=== PATIENT | female | born 1940 | race Caucasian/White ===

== ENCOUNTER 2017-10-17 16:10 | Inpatient (IN) | payer MEDICARE, BC ==
[2017-10-17] MEDS ORDERED: DYAZIDE 25 MG-31 CAP PO (19:15)
[2017-10-17] MEDS ORDERED: ISOPTIN SR180 M1 PO (19:16)
[2017-10-17] MEDS ORDERED: CELEXA40 MG PO (19:17)
[2017-10-17] MEDS ORDERED: TENORMIN 5050 MG/TAB PO ×2 (19:17→19:18)
[2017-10-17] MEDS ORDERED: MOBIC15 MG PO (19:19)
[2017-10-17] MEDS ORDERED: PRILOSEC 20MG20 MG PO (19:19)
[2017-10-17] MEDS ORDERED: PRESERVISION1 SGL PO (19:20)
[2017-10-17 20:00] VITALS: BP 112/71; PULSE 88; TEMP 98.2
[2017-10-17 20:36] LABS: BASO # 0.1 (0.0-0.2); BASO % 0.5 % (0.0-2.0); EOS # 0.1 (0.0-0.7); EOS % 0.9 % (0-4.0); GRAN # 8.5 (1.4-6.5); GRAN % 77.2 % (42.2-75.2); HEMATOCRIT 40.1 % (37.0-47.0); HEMOGLOBIN 13.4 g/dl (12.5-16.0); LYMPH # 1.4 (1.2-3.4); LYMPH % 12.3 % (20.0-51.0); MEAN CELL VOLUME 93 fl (80.0-100.0); MEAN CORPUSCULAR HEMOGLOBIN 31 pg (27.0-31.0); MEAN CORPUSCULAR HGB CONC 33 g/dl (33.0-37.0); MEAN PLATELET VOLUME 9.2 fl (7.4-10.4); MONO % 8.7 % (1.7-9.3); PLATELET COUNT 248 K/mm3 (130-400)
[2017-10-17 20:40] LABS: PROTHROMBIN TIME 10.9 SECONDS (9.7-12.8)
[2017-10-17 20:44] LABS: ALBUMIN 4.3 gm/dL (3.5-5.0); BILIRUBIN,TOTAL 0.7 mg/dL (0.0-1.0); CREATININE, serum 0.86 mg/dL (0.52-1.25); POTASSIUM 4.3 mmol/L (3.4-5.0); TOTAL PROTEIN 7.3 gm/dL (6.4-8.2)
[2017-10-17 20:51] LABS: PRE ALBUMIN 29.8 mg/dL (17.6-36.0)
[2017-10-17 21:41] LABS: PH 6 (5-8); SQUAMOUS EPITHELIAL 0-2 /hpf; URINE APPEARANCE Clear; URINE BACTERIA None Seen /hpf; URINE BILIRUBIN Negative (NEGATIVE); URINE BLOOD Negative (NEGATIVE); URINE COLOR Yellow; URINE GLUCOSE Negative (NEGATIVE); URINE KETONE Negative (NEGATIVE); URINE LEUKOCYTE ESTERASE 2+ (NEGATIVE); URINE NITRATE Negative (NEGATIVE); URINE PROTEIN(semi-quant) Negative (NEGATIVE); URINE UROBILINOGEN Negative (NEGATIVE)
[2017-10-17 21:44] LABS: COLLECTION METHOD CLEAN CATCH
[2017-10-18] VITALS (10 sets, daily range): BP systolic 93–135; BP diastolic 51–84; PULSE 65–82; TEMP 98.1–98.4
[2017-10-19] VITALS (7 sets, daily range): BP systolic 133–176; BP diastolic 54–83; PULSE 69–90; TEMP 97.9–99.4
[2017-10-19 06:55] LABS: BASO % 0.2 % (0.0-2.0); GRAN # 9.2 (1.4-6.5); GRAN % 86.2 % (42.2-75.2); LYMPH # 0.6 (1.2-3.4); LYMPH % 5.8 % (20.0-51.0); MEAN CORPUSCULAR HGB CONC 32 g/dl (33.0-37.0); MONO # 0.8 (0.1-0.6); MONO % 7.5 % (1.7-9.3); PLATELET COUNT 236 K/mm3 (130-400); RED BLOOD COUNT 3.52 M/mm3 (4.10-5.30); REDCELL DISTRIBUTION WIDTH-CV 13.1 % (11.5-14.5)
[2017-10-19 06:58] LABS: HEMATOCRIT 34.6 % (37.0-47.0); HEMOGLOBIN 11.2 g/dl (12.5-16.0); MEAN CELL VOLUME 98 fl (80.0-100.0); MEAN CORPUSCULAR HEMOGLOBIN 32 pg (27.0-31.0)
[2017-10-19 07:08] LABS: CALCIUM 8.4 mg/dL (8.4-10.2); CREATININE, serum 0.99 mg/dL (0.52-1.25)
[2017-10-20 04:28] VITALS: BP 169/65; PULSE 79; TEMP 98.5
[2017-10-20 06:38] LABS: BASO # 0.1 (0.0-0.2); BASO % 0.6 % (0.0-2.0); EOS # 0.1 (0.0-0.7); EOS % 1.5 % (0-4.0); GRAN # 6.4 (1.4-6.5); GRAN % 67.2 % (42.2-75.2); HEMATOCRIT 34.5 % (37.0-47.0); LYMPH % 20.7 % (20.0-51.0); MEAN CELL VOLUME 98 fl (80.0-100.0); MEAN CORPUSCULAR HEMOGLOBIN 31 pg (27.0-31.0); MEAN CORPUSCULAR HGB CONC 32 g/dl (33.0-37.0); MEAN PLATELET VOLUME 10.1 fl (7.4-10.4); MONO # 0.9 (0.1-0.6); MONO % 9.4 % (1.7-9.3); PLATELET COUNT 233 K/mm3 (130-400); RED BLOOD COUNT 3.51 M/mm3 (4.10-5.30); REDCELL DISTRIBUTION WIDTH-CV 13.2 % (11.5-14.5)
[2017-10-20 08:32] VITALS: BP 150/65; PULSE 78; TEMP 97.9
[2017-10-20] MEDS ORDERED: VITAMINC1000TA PO (11:02)
[2017-10-20] MEDS ORDERED: DUO-KAPS1 CAP PO (11:03)
[2017-10-20] MEDS ORDERED: OYSCO 500500 M1 PO (11:03)
[2017-10-20] MEDS ORDERED: ROXICODONE 55 MG/TAB PO ×3 (11:06→14:07)
[2017-10-20] MEDS ORDERED: COLACE 100100 MG/CAP PO (11:08)
[2017-10-20 11:57] VITALS: BP 126/58; PULSE 65; TEMP 98.2
[2017-10-20] MEDS ORDERED: ASPI325T6 PO (12:22)
[2017-10-20 15:29] VITALS: BP 125/58; PULSE 67; TEMP 98.7
== END 2017-10-20 16:25 | disposition home or self-care (01) | DRG 482 ==
LOC: SURG 16:10
PROVIDERS: Nurse Practitioner Family; Orthopaedic Surgery
PROC: 0QS734Z Reposition Left Upper Femur with Internal Fixation Device, Percutaneous Approach (ICD-10-PCS; principal; 2017-10-18 07:30)
DX: M80.052A Age-related osteoporosis with current pathological fracture, left femur, initial encounter for fracture (principal); W19.XXXA Unspecified fall, initial encounter; D72.829 Elevated white blood cell count, unspecified; K21.9 Gastro-esophageal reflux disease without esophagitis; F32.9 Major depressive disorder, single episode, unspecified; R07.89 Other chest pain; I10 Essential (primary) hypertension; Z85.3 Personal history of malignant neoplasm of breast; Z87.891 Personal history of nicotine dependence
CPT/HCPCS: 99223-AI; 99232-AI; A9284; C1713; J0690; J1100; J1170; J1885; J2270; J2405; J2704; J3010; J7120

== ENCOUNTER 2018-03-12 10:44 | Emergency (ER) | payer MEDICARE, BC ==
[~2018-03-12] VITALS: Ht 167.6 cm; Wt 68.2 kg
[~2018-03-12 10:44] MED LIST: ASPI325T6 PO; CELEXA40 MG PO; COLACE 100100 MG/CAP PO; DUO-KAPS1 CAP PO; DYAZIDE 25 MG-31 CAP PO; ISOPTIN SR180 M1 PO; MOBIC15 MG PO; OYSCO 500500 M1 PO; PRESERVISION1 SGL PO; PRILOSEC 20MG20 MG PO; ROXICODONE 55 MG/TAB PO; TENORMIN 5050 MG/TAB PO; VITAMINC1000TA PO
[2018-03-12 10:55] VITALS: TEMP 96.2
[2018-03-12 11:55] LABS: COLLECTION METHOD CLEAN CATCH
[2018-03-12 12:05] LABS: PH 7 (5-8); SQUAMOUS EPITHELIAL 0-2 /hpf; URINE APPEARANCE Clear; URINE BACTERIA None Seen /hpf; URINE BILIRUBIN Negative (NEGATIVE); URINE BLOOD 1+ (NEGATIVE); URINE COLOR Straw; URINE GLUCOSE Negative (NEGATIVE); URINE KETONE Negative (NEGATIVE); URINE LEUKOCYTE ESTERASE 1+ (NEGATIVE); URINE NITRATE Negative (NEGATIVE); URINE PROTEIN(semi-quant) Negative (NEGATIVE); URINE RBC 0-2 /hpf; URINE UROBILINOGEN Negative (NEGATIVE)
[2018-03-12 12:12] LABS: BASO # 0.1 (0.0-0.2); BASO % 0.9 % (0.0-2.0); EOS # 0.2 (0.0-0.7); EOS % 1.8 % (0-4.0); GRAN # 7.3 (1.4-6.5); GRAN % 75.3 % (42.2-75.2); HEMATOCRIT 42.8 % (37.0-47.0); HEMOGLOBIN 14.5 g/dl (12.5-16.0); LYMPH # 1.4 (1.2-3.4); LYMPH % 14.4 % (20.0-51.0); MEAN CELL VOLUME 91 fl (80.0-100.0); MEAN CORPUSCULAR HEMOGLOBIN 31 pg (27.0-31.0); MEAN CORPUSCULAR HGB CONC 34 g/dl (33.0-37.0); MEAN PLATELET VOLUME 9.2 fl (7.4-10.4); MONO # 0.7 (0.1-0.6); MONO % 7.3 % (1.7-9.3); PLATELET COUNT 318 K/mm3 (130-400); RED BLOOD COUNT 4.72 M/mm3 (4.10-5.30); REDCELL DISTRIBUTION WIDTH-CV 12.5 % (11.5-14.5)
[2018-03-12 12:45] LABS: ALBUMIN 4.4 gm/dL (3.5-5.0); BILIRUBIN,TOTAL 0.9 mg/dL (0.0-1.0); CALCIUM 9.5 mg/dL (8.4-10.2); CREATININE, serum 0.98 mg/dL (0.52-1.25); POTASSIUM 4.7 mmol/L (3.4-5.0); TOTAL PROTEIN 7.6 gm/dL (6.4-8.2)
[2018-03-12 13:06] VITALS: BP 154/71; PULSE 80
== END 2018-03-12 13:07 | disposition home or self-care (01) ==
LOC: COL.ER 10:44
PROVIDERS: Emergency Medicine
DX: S06.0X9A Concussion with loss of consciousness of unspecified duration, initial encounter (principal); S80.01XA Contusion of right knee, initial encounter; S00.83XA Contusion of other part of head, initial encounter; S50.311A Abrasion of right elbow, initial encounter; Z23 Encounter for immunization; W01.0XXA Fall on same level from slipping, tripping and stumbling without subsequent striking against object, initial encounter; Y92.129 Unspecified place in nursing home as the place of occurrence of the external cause

== ENCOUNTER 2018-03-25 11:42 | Emergency (ER) | payer MEDICARE, BC ==
[~2018-03-25] VITALS: Ht 167.6 cm; Wt 63.6 kg
[2018-03-25 11:43] VITALS: TEMP 97.6
[2018-03-25] MEDS ORDERED: TEGRETOL 2200 MG/TA1 PO (11:55)
[2018-03-25 12:07] LABS: BASO # 0.1 (0.0-0.2); BASO % 1.3 % (0.0-2.0); EOS # 0.3 (0.0-0.7); EOS % 2.9 % (0-4.0); GRAN # 6.5 (1.4-6.5); GRAN % 66.7 % (42.2-75.2); HEMATOCRIT 41.3 % (37.0-47.0); HEMOGLOBIN 13.5 g/dl (12.5-16.0); INR 0.9 (0.8-3.0); LYMPH # 1.8 (1.2-3.4); LYMPH % 18.7 % (20.0-51.0); MEAN CELL VOLUME 95 fl (80.0-100.0); MEAN CORPUSCULAR HEMOGLOBIN 31 pg (27.0-31.0); MEAN CORPUSCULAR HGB CONC 33 g/dl (33.0-37.0); MEAN PLATELET VOLUME 9.1 fl (7.4-10.4); PLATELET COUNT 307 K/mm3 (130-400); PROTHROMBIN TIME 10.7 SECONDS (9.7-12.8); RED BLOOD COUNT 4.35 M/mm3 (4.10-5.30); REDCELL DISTRIBUTION WIDTH-CV 13.5 % (11.5-14.5)
[2018-03-25 12:10] LABS: PARTIAL THROMBOPLASTIN TIME 36.8 SECONDS (26.0-37.0)
[2018-03-25 12:11] LABS: ALANINE AMINOTRANSFERASE 17 U/L (9-52); ALBUMIN 3.8 gm/dL (3.5-5.0); ALKALINE PHOSPHATASE 56 U/L (50-136); ANION GAP 9 mmol/L (7-16); AST,SGOT 24 U/L (15-37); BILIRUBIN,TOTAL 0.4 mg/dL (0.0-1.0); BLOOD UREA NITROGEN 31 mg/dL (7-17); CALCIUM 8.6 mg/dL (8.4-10.2); CARBON DIOXIDE 21 mmol/L (22-30); CHLORIDE 108 mmol/L (98-107); CREATINE KINASE 54 U/L (30-135); CREATININE, serum 1.49 mg/dL (0.52-1.25); GLUCOSE 91 mg/dL (74-106); MAGNESIUM 1.7 mg/dL (1.6-2.3); POTASSIUM 5.6 mmol/L (3.4-5.0); SODIUM 137 mmol/L (137-145); TOTAL PROTEIN 6.7 gm/dL (6.4-8.2)
[2018-03-25 12:23] LABS: TROPONIN-I < 0.012 ng/mL (0.000-0.034)
[2018-03-25 14:52] VITALS: BP 97/53; PULSE 39
[2018-03-29] MEDS ORDERED: CEPHALEXIN500 M1 PO (16:39)
[2018-03-29] MEDS ORDERED: MELATONIN5 M1 PO (16:40)
[2018-03-29] MEDS ORDERED: TYLENOL 8 HR PO (16:41)
== END 2018-03-25 14:52 | disposition short-term general hospital (02) ==
LOC: COL.ER 11:42
PROVIDERS: Emergency Medicine
DX: R55 Syncope and collapse (principal); R00.1 Bradycardia, unspecified; Z90.710 Acquired absence of both cervix and uterus; Z85.3 Personal history of malignant neoplasm of breast
CPT/HCPCS: J1610; J2060; J2405; J7030

== ENCOUNTER 2019-06-06 15:15 | Observation (INO) | payer MEDICARE, BC ==
[~2019-06-06] VITALS: Ht 167.6 cm; Wt 55.9 kg
[~2019-06-06 15:15] MED LIST changes: +ASPIRIN E.C. 8181 MG PO; +CEPHALEXIN500 M1 PO; +HCTZ12.5TAB PO; +LIPITOR20 MG PO; +LOPRESSOR100 MG PO; +MELATONIN5 M1 PO; +TEGRETOL 2200 MG/TA1 PO; +TYLENOL 8 HR PO; +ZESTRIL 5MG5 MG PO
[2019-06-06 15:59] LABS: HEMATOCRIT 40.1 % (37.0-47.0); HEMOGLOBIN 12.5 g/dl (12.5-16.0); MEAN CELL VOLUME 103 fl (80.0-100.0); MEAN CORPUSCULAR HEMOGLOBIN 32 pg (27.0-31.0); MEAN CORPUSCULAR HGB CONC 31 g/dl (33.0-37.0); MEAN PLATELET VOLUME 9.5 fl (7.4-10.4); PLATELET COUNT 670 K/mm3 (130-400); RED BLOOD COUNT 3.91 M/mm3 (4.10-5.30); REDCELL DISTRIBUTION WIDTH-CV 12.7 % (11.5-14.5)
[2019-06-06 16:04] LABS: INR 1.1 (0.8-3.0); PROTHROMBIN TIME 12.8 SECONDS (9.7-12.8)
[2019-06-06 16:12] LABS: ALBUMIN 3.6 gm/dL (3.5-5.0); BILIRUBIN,TOTAL 0.4 mg/dL (0.0-1.0); CALCIUM 8.9 mg/dL (8.4-10.2); CREATININE, serum 1.15 (0.52-1.25); TOTAL PROTEIN 7.2 gm/dL (6.4-8.2)
[2019-06-06 16:20] LABS: BAND 2 % (0-10); EOSINOPHIL 1 % (0-4); LYMPHOCYTE 20 % (20.0-51.0); METAMYELOCYTE 1 % (0-0); NEUTROPHILS 72 % (42.0-75.2); PLATELET ESTIMATE INCREASED (NORMAL)
[2019-06-06 16:33] LABS: TROPONIN-I 0.044 ng/mL (0.000-0.035)
[2019-06-06] MEDS ORDERED: DYAZIDE 25 MG-31 CAP PO (19:13)
[2019-06-06] MEDS ORDERED: TUSS PO (19:13)
[2019-06-06] MEDS ORDERED: ZOFRAN ODT4 MG PO (19:15)
[2019-06-06] MEDS ORDERED: TESSALON PERLE200 MG PO (19:16)
[2019-06-06] MEDS ORDERED: ZESTRIL 20MG TA20 MG PO (19:17)
[2019-06-06] MEDS ORDERED: ZOLOFT 50MG50 MG PO (19:18)
[2019-06-06] MEDS ORDERED: CEPHALEXIN500 M1 PO (19:18)
[2019-06-06] MEDS ORDERED: COREG 6.256.25 MG/TA PO (19:19)
[2019-06-06] MEDS ORDERED: LIPITOR 40MG TA40 MG PO (19:20)
[2019-06-06] MEDS ORDERED: ALBUTEROL0.83 MG/ML IH (19:21)
[2019-06-06 19:48] VITALS: BP 132/62; PULSE 105; TEMP 98.1
--- NOTE | 2019-06-06 19:52 | NUR ---
Resting in bed with daughter at bedside. Assessment complete. Bases bilaterally crackles otherwise clear. Heart sounds normal. Bowels active x4. Pulses strong throughout. No edema noted. IV right forearm without complications. Heparin gtt started at this time. Verified by NIR Wang. Patient reports pain 6/10. Provided with PRN tramadol at this time. Denies other needs at this time. Call light in reach.
--- NOTE | 2019-06-06 22:05 | NUR ---
Patient reports dry aching cough. Would like something to relieve cough. Spoke with Dr. Dao for order for robitussin. Provided to patient. Denies other needs. Call light in reach.
--- NOTE | 2019-06-06 23:00 | NUR ---
Patient reported continue rib pain. Spoke with Dr. Dao. Order for one time dose of norco given. Provided to patient. Denies needs. Call light in reach.
[2019-06-07 00:10] VITALS: BP 108/49; PULSE 91; TEMP 99.1
--- NOTE | 2019-06-07 02:15 | NUR ---
HepXa 0.29. No changed. Verified by Tess LOYOLA
--- NOTE | 2019-06-07 02:17 | NUR ---
Resting in bed asleep with daughter at bedside. No obvious discomfort at this time. Call light in reach.
[2019-06-07 04:14] VITALS: BP 122/60; PULSE 94; TEMP 98.3
--- NOTE | 2019-06-07 04:23 | NUR ---
Resting in bed with daughter at bedside. Denies needs. Call light in reach.
--- NOTE | 2019-06-07 06:30 | NUR ---
Patient had uneventful night. Required x1 dose of tramadol without pain relief and x1 dose of norco for pain. Denies needs at this time. Daughter at bedside.
--- NOTE | 2019-06-07 07:30 | NUR ---
Report given to NIR Farris
[2019-06-07 07:32] VITALS: BP 117/67; PULSE 94; TEMP 98
[2019-06-07 08:23] LABS: HEMATOCRIT 38.1 % (37.0-47.0); HEMOGLOBIN 11.8 g/dl (12.5-16.0); MEAN CELL VOLUME 103 fl (80.0-100.0); MEAN CORPUSCULAR HEMOGLOBIN 32 pg (27.0-31.0); MEAN CORPUSCULAR HGB CONC 31 g/dl (33.0-37.0); MEAN PLATELET VOLUME 9.4 fl (7.4-10.4); PLATELET COUNT 643 K/mm3 (130-400); REDCELL DISTRIBUTION WIDTH-CV 12.7 % (11.5-14.5)
[2019-06-07 08:33] LABS: CHOLESTEROL RISK RATIO 4.1; CREATININE, serum 0.97 (0.52-1.25); POTASSIUM 4.7 mmol/L (3.4-5.0)
[2019-06-07 08:44] LABS: TROPONIN-I 0.019 ng/mL (0.000-0.035)
[2019-06-07 09:31] LABS: EOSINOPHIL 1 % (0-4); NEUTROPHILS 64 % (42.0-75.2)
--- NOTE | 2019-06-07 09:31 | NUR ---
Py awake and alert upon entry, sitting on edge of bed, OT in the room, some C/O pain in side of ribs, shift assessment complete, left Pt call light in reach, bed in lowest position.
[2019-06-07 09:36] LABS: LYMPHOCYTE 27 % (20.0-51.0)
[2019-06-07 09:40] LABS: PLATELET ESTIMATE INCREASED (NORMAL)
[2019-06-07 11:29] VITALS: BP 114/59; PULSE 86; TEMP 98.1
--- NOTE | 2019-06-07 11:56 | NUR ---
KAREN met with the patient and her daughter, Whitney, to discuss discharge plan. The patient lives alone in [place]. She states that her just six days ago. She states that since then, she has been receiving family support. She reports independence with ADLs and has a cane, walker, and wheelchair. The patient's PCP is Dr. Kashmir Gerber. She states that Dr. Gerber has been gone, due to an emergency and that she has been seeing Dr. Davila while Dr. Gerber is gone. She receives her medications at [facility] in [place] and she reports no difficulties obtaining her meds. The patient's advanced directives are in EMR. Her DPOA-HC is her daughter's: Tisha Ramey (ph#[phone]), Caitlin Ramey (ph#[phone]), Malick Grace. The patient plans to return home with family support upon discharge. KAREN discussed PT/OT's recommendation of home health. The patient reports that she would be interested in home health. KAREN provided the patient with Medicare.gov's list of home health agencies that serve [place]. The patient states that her has [facility] and she chose them for herself. KAREN attempted to contact Crystal at [facility]. KAREN left her a voicemail and faxed over the referral. SW awaiting their screen.
--- NOTE | 2019-06-07 12:19 | NUR ---
First visit from the fitness consultant. No needs right now.
[2019-06-07] MEDS ORDERED: ASPIRIN E.C. 8181 MG PO (12:47)
[2019-06-07] MEDS ORDERED: NORCO 325 MG-51 TAB PO (12:48)
--- NOTE | 2019-06-07 14:37 | NUR ---
Karin, at [facility], reports that they are able to accept the patient for services. KAREN informed the patient and her daughter. The patient is to discharge back home today, 06/06, with home health services for intermediate/PT/OT through [facility]. KAREN notified Karin at [facility]. SW to fax the patient's discharge orders to [facility]. No additional needs at this time.
--- NOTE | 2019-06-07 14:45 | NUR ---
Pt discharged to home, discussed discharge information with Pt answered questions. Escorted Pt to entrance, Pt left with family via private transportation.
[2019-06-08 08:45] LABS: PATHOLOGY DIFF REVIEW OK
== END 2019-06-07 14:55 | disposition home or self-care (01) ==
LOC: COL.ER 15:15 → MEDICAL 16:38
PROVIDERS: Family Medicine; ADMIT Hospitalist
DX: I21.4 Non-ST elevation (NSTEMI) myocardial infarction (principal); I48.91 Unspecified atrial fibrillation; I11.0 Hypertensive heart disease with heart failure; I50.22 Chronic systolic (congestive) heart failure; I25.10 Atherosclerotic heart disease of native coronary artery without angina pectoris; M81.0 Age-related osteoporosis without current pathological fracture; K21.9 Gastro-esophageal reflux disease without esophagitis; D47.3 Essential (hemorrhagic) thrombocythemia; F32.9 Major depressive disorder, single episode, unspecified; J18.9 Pneumonia, unspecified organism; Z85.3 Personal history of malignant neoplasm of breast; Z90.710 Acquired absence of both cervix and uterus; Z79.899 Other long term (current) drug therapy; Z79.82 Long term (current) use of aspirin; Z87.891 Personal history of nicotine dependence; Z82.61 Family history of arthritis; Z82.62 Family history of osteoporosis; Z84.89 Family history of other specified conditions; Z95.0 Presence of cardiac pacemaker
CPT/HCPCS: G0378; J1644

== ENCOUNTER 2020-05-22 13:55 | Observation (INO) | payer MEDICARE, OTHER ==
[~2020-05-22] VITALS: Ht 167.6 cm; Wt 55.9 kg
[~2020-05-22 13:55] MED LIST changes: +ALBUTEROL0.83 MG/ML IH; +COREG 6.256.25 MG/TA PO; +LIPITOR 40MG TA40 MG PO; +NORCO 325 MG-51 TAB PO; +TESSALON PERLE200 MG PO; +TUSS PO; +ZESTRIL 20MG TA20 MG PO; +ZOFRAN ODT4 MG PO; +ZOLOFT 50MG50 MG PO
[2020-05-22 14:52] LABS: BASO # 0.1 (0.0-0.2); BASO % 1.2 % (0.0-2.0); EOS # 0.3 (0.0-0.7); GRAN % 66.2 % (42.2-75.2); HEMOGLOBIN 14.9 g/dl (12.5-16.0); LYMPH # 1.9 (1.2-3.4); LYMPH % 20.5 % (20.0-51.0); MEAN CELL VOLUME 97 fl (80.0-100.0); MEAN CORPUSCULAR HEMOGLOBIN 33 pg (27.0-31.0); MEAN CORPUSCULAR HGB CONC 34 g/dl (33.0-37.0); MEAN PLATELET VOLUME 9.4 fl (7.4-10.4); MONO # 0.8 (0.1-0.6); MONO % 8.9 % (1.7-9.3); PLATELET COUNT 277 K/mm3 (130-400); RED BLOOD COUNT 4.53 M/mm3 (4.10-5.30); REDCELL DISTRIBUTION WIDTH-CV 12.8 % (11.5-14.5)
[2020-05-22 15:12] LABS: ALANINE AMINOTRANSFERASE 20 U/L (4-34); ALBUMIN 4.4 gm/dL (3.5-5.0); ALKALINE PHOSPHATASE 51 U/L (50-136); ANION GAP 11 mmol/L (7-16); AST,SGOT 34 U/L (15-37); BILIRUBIN,TOTAL 0.8 mg/dL (0.0-1.0); BLOOD UREA NITROGEN 22 mg/dL (7-17); CALCIUM 9.4 mg/dL (8.4-10.2); CARBON DIOXIDE 22 mmol/L (22-30); CHLORIDE 103 mmol/L (98-107); CREATININE, serum 0.92 (0.52-1.25); GLUCOSE 93 mg/dL (74-106); POTASSIUM 4.2 mmol/L (3.4-5.0); SODIUM 136 mmol/L (137-145); TOTAL PROTEIN 7.6 gm/dL (6.4-8.2)
[2020-05-22 15:26] LABS: TROPONIN-I < 0.012 ng/mL (0.000-0.035)
[2020-05-22 16:12] LABS: COLLECTION METHOD CLEAN CATCH
[2020-05-22 16:20] LABS: PH 6 (5-8); SQUAMOUS EPITHELIAL 0-2 /hpf; URINE APPEARANCE Clear; URINE BACTERIA Rare /hpf; URINE BILIRUBIN Negative (NEGATIVE); URINE BLOOD 1+ (NEGATIVE); URINE COLOR Straw; URINE GLUCOSE Negative (NEGATIVE); URINE KETONE Negative (NEGATIVE); URINE LEUKOCYTE ESTERASE Trace (NEGATIVE); URINE NITRATE Negative (NEGATIVE); URINE PROTEIN(semi-quant) Negative (NEGATIVE); URINE RBC 0-2 /hpf; URINE UROBILINOGEN Negative (NEGATIVE)
[2020-05-22] MEDS ORDERED: MELATONIN5 M1 SL (19:12)
--- NOTE | 2020-05-22 20:00 | NUR ---
PATIENT WAS RECEIVED FROM ED ON A CART,ON RA.ASSESSMENT DONE,ORIENTATION DONE,DUE MEDS GIVEN.REPORTS PAIN WHEN MOVING THE L ARM.DECLINES PAIN MEDS.NO OTHER NEEDS AT THIS TIME.
[2020-05-22 21:01] VITALS: BP 135/61; PULSE 112; TEMP 97.2
[2020-05-22 21:17] LABS: INR 1.1 (0.8-3.0); PROTHROMBIN TIME 12.2 SECONDS (9.7-12.8)
[2020-05-22 21:20] LABS: PARTIAL THROMBOPLASTIN TIME 34.1 SECONDS (26.0-37.0)
[2020-05-22 21:29] LABS: MAGNESIUM 1.3 mg/dL (1.6-2.3); PHOSPHOROUS 3.2 mg/dL (2.5-4.5)
[2020-05-22 23:10] VITALS: BP 136/72; PULSE 102; TEMP 98
[2020-05-23 04:02] VITALS: BP 174/81; PULSE 100; TEMP 97.5
--- NOTE | 2020-05-23 06:04 | NUR ---
PATIENT SLEPT WELL,DUE MEDS GIVEN ASSESSMENT DONE.HAS L ARM WEAKNESS AOX4.DENIES PAIN.NO OTHER NEEDS AT THIS TIME.
[2020-05-23 06:57] LABS: CHOLESTEROL RISK RATIO 2.8
--- NOTE | 2020-05-23 07:15 | NUR ---
BEDSIDE REPORT RECIEVED FROM NIR DÍAZ. PATIENT IS CURRENLY AWAKE LAYING IN BED. PATIENT DOES NO C/O ANY PAIN AT THIS TIME. PATIENT DENIES ANY NEEDS AT THIS TIME. WILL CONTINUE TO MONITOR. BED IN LOWEST POSITION. BED ALARM ON. CALL LIGHT WITHIN REACH.
[2020-05-23 07:42] VITALS: BP 141/95; PULSE 100; TEMP 97.1
[2020-05-23 10:22] VITALS: BP 162/82; PULSE 97
--- NOTE | 2020-05-23 10:22 | NUR ---
PATIENT CURRENTLY WORKING WITH PT. PATIENT C/O SLIGHT HEADACHE RATED A 3/10. GAVE PATIENT 650MG OF ACETAMENOPHEN. PATIENTS BP WAS 162/82 WITH A PULSE OF 97. WILL CONTINUE TO MONITOR.
--- NOTE | 2020-05-23 10:39 | NUR ---
Initial visit; Patient thanked [employer] Ass[employer] for introducing herself and offering prayer and God's blessings. [employer] will follow up.
[2020-05-23 12:00] VITALS: BP 138/81; PULSE 92; TEMP 98.9
--- NOTE | 2020-05-23 12:02 | NUR ---
Patient currently getting MRI.
[2020-05-23 15:59] VITALS: BP 158/83; PULSE 94; TEMP 97.7
--- NOTE | 2020-05-23 15:59 | NUR ---
Media Law Faculty Member met with the patient and the patient's daughter to complete intake. The patient lives alone in [place] but has support from her daughters. The patient has a cane, walker, shower chair, and bars in the shower for safety. The patient's PCP is Dr. Cabrera and patient receives medications from [facility] in [place]. The patient does not have advanced directives in the EMR but state they are likely complete. She would like DPOA-HC form in case they are no complete or they can not find it. Form provided. The patient is a . The patient has three daughters, Malick, Tisha and Whitney. The patient plans to return home at discharge. SW discussed home health and was agreeable to home health services. The patient has used [facility] in the past and would like to use them. Referral faxed. Awaiting response.
--- NOTE | 2020-05-23 17:45 | NUR ---
Patient currenly sitting up in bed watching TV. All scheduled medications given. Patient still having difficulties using her left arm, but has improved as the day has progressed. Patient was able to walk to the bathroom with standby assist only. Patient does not C/O any pain or discomfort at this time. Patient denies any further needs at this time. Will continue to monitor. Bed in lowest position. Call light within reach.
[2020-05-23 20:00] VITALS: BP 156/73; PULSE 95; TEMP 98.4
[2020-05-24 00:06] VITALS: BP 136/66; PULSE 94; TEMP 98
[2020-05-24 03:50] VITALS: BP 166/79; PULSE 91; TEMP 97.9
--- NOTE | 2020-05-24 06:57 | NUR ---
Recieved bedside report from NIR Cabrera. Patient is resting in bed at this time. Patient does not C/O of any pain or discomfort at this time. Patient denies any needs at this time. Will continue to monitor. Bed in lowest position. Call light within reach.
[2020-05-24 08:14] VITALS: BP 146/76; PULSE 97; TEMP 98.3
--- NOTE | 2020-05-24 10:48 | NUR ---
PATIENT GIVEN PRN ATIVAN O.5 MG. PATIENT ESCORTED DOWN TO MRI BY VIA [facility] STAFF.
--- NOTE | 2020-05-24 11:45 | NUR ---
Isaak, at [facility], reports that they are able to accept the patient for services.
[2020-05-24 13:14] VITALS: BP 161/80; PULSE 72; TEMP 97.6
--- NOTE | 2020-05-24 14:45 | NUR ---
Patient is resting in bed at this time. Her daughter is at the bedside. Patient does not C/O any pain or discomfort at this time. Patient denies any further needs. Wants to be notified as soon as MRI results come back. Will continue to monitor. Bed in lowest position. Call light within reach.
[2020-05-24] MEDS ORDERED: NORCO2.5 PO ×2 (15:56)
--- NOTE | 2020-05-24 16:15 | NUR ---
KAREN met with the patient and her daughter and informed them of [facility]'s acceptance. The patient may be able to d/c tomorrow. KAREN notified Lydia at [facility].
[2020-05-24 16:35] VITALS: BP 157/90; PULSE 87; TEMP 97.5
--- NOTE | 2020-05-24 21:17 | NUR ---
DISCHARGE INSTRUCTIONS AND PAPERS PROVIDED TO PATIENT AND HER DAUGHTER. PATIENT AND DAUGHTER BOTH VERBALIZED UNDERSTANDING. PATIENT ESCORTED TO ER ENTRANCE VIA WHEELCHAIR BY THIS NURSE. PATIENT LEFT BY PRIVATE VEHICLE WITH HER DAUGHTER.
--- NOTE | 2020-05-27 09:38 | NUR ---
The patient discharged on Wednesday, 05/27, with home health services for half-way/PT/OT from [facility]. SW notified and faxed d/c orders to [facility] and [facility]. No additional needs at this time.
== END 2020-05-24 21:17 | disposition home health service (06) ==
LOC: COL.ER 13:55 → MEDICAL 18:06 → SURG 05-23 10:39 → MEDICAL 05-23 10:39
PROVIDERS: Emergency Medicine; Nurse Practitioner Family; ADMIT Hospitalist
DX: R20.2 Paresthesia of skin (principal); M62.81 Muscle weakness (generalized); I65.02 Occlusion and stenosis of left vertebral artery; I25.10 Atherosclerotic heart disease of native coronary artery without angina pectoris; I11.0 Hypertensive heart disease with heart failure; I50.40 Unspecified combined systolic (congestive) and diastolic (congestive) heart failure; K21.9 Gastro-esophageal reflux disease without esophagitis; N39.0 Urinary tract infection, site not specified; R00.1 Bradycardia, unspecified; I48.91 Unspecified atrial fibrillation; G31.89 Other specified degenerative diseases of nervous system; E83.42 Hypomagnesemia; S46.212A Strain of muscle, fascia and tendon of other parts of biceps, left arm, initial encounter; Z92.3 Personal history of irradiation; M75.102 Unspecified rotator cuff tear or rupture of left shoulder, not specified as traumatic; F32.9 Major depressive disorder, single episode, unspecified; Z79.82 Long term (current) use of aspirin; Z95.0 Presence of cardiac pacemaker; Z85.3 Personal history of malignant neoplasm of breast; Z79.899 Other long term (current) drug therapy; M85.80 Other specified disorders of bone density and structure, unspecified site; Z90.12 Acquired absence of left breast and nipple; Z87.891 Personal history of nicotine dependence
CPT/HCPCS: 99223-AI; 99233-AI; A9585; G0378; J0696; J1650; J3475; J7030; Q9967

== ENCOUNTER 2020-10-02 08:20 | Outpatient (CLI) | payer MEDICARE, OTHER ==
[~2020-10-02] VITALS: Ht 167.7 cm; Wt 57.1 kg
[~2020-10-02 08:20] MED LIST changes: +MELATONIN5 M1 SL; +NORCO2.5 PO
[2020-10-02 09:30] VITALS: BP 120/82; PULSE 88; TEMP 97.9
[2020-10-02] MEDS ORDERED: ASPIRIN E.C. 8181 MG PO (09:36)
[2020-10-02 09:53] LABS: BASO # 0.1 (0.0-0.2); BASO % 0.9 % (0.0-2.0); EOS # 0.5 (0.0-0.7); EOS % 7.4 % (0-4.0); GRAN # 3.8 (1.4-6.5); GRAN % 60.1 % (42.2-75.2); HEMATOCRIT 41.2 % (37.0-47.0); HEMOGLOBIN 13.2 g/dl (12.5-16.0); LYMPH # 1.3 (1.2-3.4); LYMPH % 20.1 % (20.0-51.0); MEAN CELL VOLUME 95 fl (80.0-100.0); MEAN CORPUSCULAR HEMOGLOBIN 30 pg (27.0-31.0); MEAN CORPUSCULAR HGB CONC 32 g/dl (33.0-37.0); MEAN PLATELET VOLUME 9.5 fl (7.4-10.4); MONO # 0.7 (0.1-0.6); MONO % 11.2 % (1.7-9.3); PLATELET COUNT 266 K/mm3 (130-400); RED BLOOD COUNT 4.34 M/mm3 (4.10-5.30); REDCELL DISTRIBUTION WIDTH-CV 13.7 % (11.5-14.5)
[2020-10-02 10:01] LABS: CALCIUM 9.8 mg/dL (8.4-10.2); CREATININE, serum 0.83 (0.52-1.25); POTASSIUM 3.7 mmol/L (3.4-5.0)
[2020-10-02 10:07] LABS: INR 1.8 (0.8-3.0); PROTHROMBIN TIME 19.7 SECONDS (9.7-12.8)
[2020-10-02 10:45] VITALS: BP 148/74; PULSE 81
[2020-10-02 11:00] VITALS: BP 150/76; PULSE 80
[2020-10-02 11:15] VITALS: BP 152/75; PULSE 79
[2020-10-02 11:30] VITALS: BP 152/73; PULSE 73
[2020-10-02 11:45] VITALS: BP 153/87; PULSE 78
--- NOTE | 2020-10-02 12:20 | NUR ---
PT READY FOR DEPARTURE AT THIS TIME. I ASSUMED CARE FROM VALERI LOYOLA AT 1045. PT WAS STILL DROWSY AT THAT TIME. PT WOKE UP WITH NO PROBLEM, SHE HAS BEEN DRINKING WATER AND COFFEE, AND HAS NOT HAD ANY PROBLEMS WITH SOB, NAUSEA, SORE THROAT. I REVIEWED DC AND FU INSTRUCTIONS WITH PT AND DAUGHTER MULTIPLE TIMES AND THEY DENY QUESTIONS AT TIME OF DEPARTURE. IV IS DC'D WITH CATH INTACT, PT IS AMBULATORY IN ROOM WITH NORMAL GAIT. TO EXIT VIA WHEELCHAIR WITH DAUGHTER AT THIS TIME.
== END 2020-10-02 12:20 | disposition home or self-care (01) ==
LOC: COL.RAD 08:20
PROVIDERS: Internal Medicine Cardiovascular Disease
DX: Z01.810 Encounter for preprocedural cardiovascular examination (principal); I48.0 Paroxysmal atrial fibrillation; I34.0 Nonrheumatic mitral (valve) insufficiency
CPT/HCPCS: J2704

== ENCOUNTER → 2020-12-11 | Outpatient (CLI) | payer MEDICARE, OTHER | LOC: COL.RAD 11-28 08:15 | DX: S46.011A Strain of muscle(s) and tendon(s) of the rotator cuff of right shoulder, initial encounter (principal); M25.411 Effusion, right shoulder ==

== ENCOUNTER 2021-03-08 17:30 | Emergency (ER) | payer MEDICARE, OTHER ==
[~2021-03-08] VITALS: Ht 170.2 cm; Wt 62.3 kg
[2021-03-08 17:55] VITALS: TEMP 97.9
[2021-03-08 20:51] VITALS: BP 124/78; PULSE 76
== END 2021-03-08 20:51 | disposition home or self-care (01) ==
LOC: COL.ER 17:30
DX: S01.112A Laceration without foreign body of left eyelid and periocular area, initial encounter (principal); I11.0 Hypertensive heart disease with heart failure; I50.9 Heart failure, unspecified; E78.5 Hyperlipidemia, unspecified; K21.9 Gastro-esophageal reflux disease without esophagitis; Z95.0 Presence of cardiac pacemaker; Z79.899 Other long term (current) drug therapy; W01.198A Fall on same level from slipping, tripping and stumbling with subsequent striking against other object, initial encounter

== ENCOUNTER 2021-04-29 16:58 | Emergency (ER) | payer MEDICARE, OTHER ==
[~2021-04-29] VITALS: Ht 167.6 cm; Wt 61.4 kg
[2021-04-29 17:08] VITALS: TEMP 97.7
[2021-04-29 18:28] VITALS: BP 114/78; PULSE 76
== END 2021-04-29 18:28 | disposition home or self-care (01) ==
LOC: COL.ER 16:58
DX: S00.83XA Contusion of other part of head, initial encounter (principal); I10 Essential (primary) hypertension; I25.10 Atherosclerotic heart disease of native coronary artery without angina pectoris; I48.91 Unspecified atrial fibrillation; K21.9 Gastro-esophageal reflux disease without esophagitis; F32.A Depression, unspecified; Z79.01 Long term (current) use of anticoagulants; Z79.899 Other long term (current) drug therapy; Z79.82 Long term (current) use of aspirin; W01.10XA Fall on same level from slipping, tripping and stumbling with subsequent striking against unspecified object, initial encounter; Y92.009 Unspecified place in unspecified non-institutional (private) residence as the place of occurrence of the external cause

== ENCOUNTER → 2021-08-05 | Outpatient (CLI) | payer MEDICARE, OTHER | LOC: COL.RAD 13:41 | DX: S22.089A Unspecified fracture of T11-T12 vertebra, initial encounter for closed fracture (principal); M48.061 Spinal stenosis, lumbar region without neurogenic claudication; M48.07 Spinal stenosis, lumbosacral region; M51.26 Other intervertebral disc displacement, lumbar region; M51.27 Other intervertebral disc displacement, lumbosacral region; M89.38 Hypertrophy of bone, other site; Z95.0 Presence of cardiac pacemaker ==